=== PATIENT | male | born 1975 | race Caucasian/White ===

== ENCOUNTER 2018-07-08 09:30 | Inpatient (IN) | payer OTHER ==
[~2018-07-08] VITALS: Ht 175.3 cm; Wt 113.4 kg
== END 2018-07-21 10:51 | disposition home or self-care (01) | DRG 346 ==
LOC: SURH 07-15 09:30 → SURG 07-15 09:52 → O/R 07-15 09:52 → SURH 07-15 13:30 → SURG 07-15 16:43
PROVIDERS: ADMIT Colon & Rectal Surgery
PROC: 0DBV0ZZ Excision of Mesentery, Open Approach (ICD-10-PCS; 2018-07-15)
PROC: 0DSM0ZZ Reposition Descending Colon, Open Approach (ICD-10-PCS; principal; 2018-07-15 13:30)
DX: Z43.3 Encounter for attention to colostomy (principal); D48.1 Neoplasm of uncertain behavior of connective and other soft tissue; K66.0 Peritoneal adhesions (postprocedural) (postinfection); R73.03 Prediabetes; Z85.038 Personal history of other malignant neoplasm of large intestine